=== PATIENT | male | born 1955 | race Hispanic/Latino ===

== ENCOUNTER 2021-12-07 09:27 | Outpatient (RCR) | payer MEDICARE ==
[~2021-12-07 09:27] MED LIST: LIDOCAINE VISC 2% SOLN 15 ML UDC ONE
[2021-12-07] MEDS ORDERED: LIDOCAINE VISC 2% SOLN 15 ML UDC ONE (13:25)
== END 2021-12-20 ==
LOC: WCC 09:27
PROVIDERS: ATTEND Internal Medicine Infectious Disease
DX: E11.65 Type 2 diabetes mellitus with hyperglycemia (principal); S61.203A Unspecified open wound of left middle finger without damage to nail, initial encounter; E78.2 Mixed hyperlipidemia; M06.9 Rheumatoid arthritis, unspecified; J40 Bronchitis, not specified as acute or chronic; X58.XXXA Exposure to other specified factors, initial encounter

== ENCOUNTER 2021-12-28 09:45 | Outpatient (RCR) | payer MEDICARE ==
[2021-12-28] MEDS ORDERED: LIDOCAINE VISC 2% SOLN 15 ML UDC ONE (12:45)
== END 2022-01-19 ==
LOC: WCC 09:45
PROVIDERS: ATTEND Internal Medicine Infectious Disease
DX: E11.65 Type 2 diabetes mellitus with hyperglycemia (principal); S61.203A Unspecified open wound of left middle finger without damage to nail, initial encounter; J40 Bronchitis, not specified as acute or chronic; E78.2 Mixed hyperlipidemia; M06.9 Rheumatoid arthritis, unspecified; B96.5 Pseudomonas (aeruginosa) (mallei) (pseudomallei) as the cause of diseases classified elsewhere; X58.XXXA Exposure to other specified factors, initial encounter